=== PATIENT | female | born 2000 | race Caucasian/White ===

== ENCOUNTER 2022-02-16 18:19 | Emergency (ER) | payer SELFPAY ==
[2022-02-16 18:39] VITALS: BP 118/59; PULSE 77; RESP 18; TEMP 36.4; O2SAT 100; BMI 24.4
--- NOTE | 2022-02-16 20:16 | PC.NURSE ---
Pt would like hemorrhoid checked. It has been flaring up for the past week. Reports some scant spotting, but no significant bleeding. Has tried OTC meds without relief.
--- NOTE | 2022-02-16 21:10 | ED.MEDCLEAR ---
HPI - Medical Clearance General Chief complaint: Medical Clearance Stated complaint: Severe hemorrhoid needs checked Time Seen by Provider: 02/16/22 20:55 Source: patient Mode of arrival: Ambulatory History of Present Illness HPI Narrative: Patient is a 21-year-old female who is here for evaluation of a hemorrhoid. She states that she has had it for the past 1-2 weeks. She has a very small amount of bleeding. Has not been constipated. No diarrhea. Has had hemorrhoids in the past but they have all resolved on their own. She states they have never lasted this long or have been this uncomfortable. Has not tried anything for the symptoms prior to arrival. Related Information Previous Rx's Medication Instructions Recorded pramoxine 1 % topical foam 1 applic WI TID PRN hemorrhoids 02/16/22 (Proctofoam) #15 grams Allergies Allergy/AdvReac Type Severity Reaction Status Date / Time No Known Drug Allergies Allergy Verified 02/16/22 18:39 Review of Systems Constitutional Constitutional: Reports system reviewed and no additional complaints, except as documented Gastrointestinal Gastrointestinal: Reports system reviewed and no additional complaints, except as documented Genitourinary Genitourinary: Reports system reviewed and no additional complaints, except as documented Integumentary/Breasts Skin/Breast: Reports system reviewed and no additional complaints, except as documented Hematologic/Lymphatic On Anticoagulants: No Patient History Medical History Hemorrhoids Social History Smoking Status: Never smoker Smoking Status: Never smoker alcohol intake frequency: a few times a week Substance Use Type: does not use Exam Initial Vital Signs Initial Vital Signs: Vital Signs Temperature 97.5 F L 02/16/22 18:39 Pulse Rate 77 02/16/22 18:39 Respiratory Rate 18 02/16/22 18:39 Blood Pressure 118/59 L 02/16/22 18:39 Pulse Oximetry 100 02/16/22 18:39 Oxygen Delivery Method 02/16/22 18:39 Const General: cooperative and comfortable HENMT Head: normal to inspection and normocephalic GI Rectal Exam: hemorrhoids (External) Skin General: no rashes or lesions noted Neuro General: patient alert, patient awake and moves all extremities MDM - Medical Clearance MDM Narrative Medical decision making narrative: Patient with a nonthrombosed external hemorrhoid. No active bleeding. No fissures noted. Had a discussion with her regarding this. No indication for emergent surgical consultation. Was sent home with a prescription for Proctofoam. We did discuss other modalities that she could use such as Sitz baths and preparation H. she was given information that she can contacted General surgery for a follow-up. She was given return precautions. She expressed understanding and agreement. Discharge Plan Departure Patient Disposition: Home Clinical Impression: External hemorrhoids Instructions: DI for Hemorrhoids Activity Restrictions/Additional Instructions: It is important that you maintain soft regular bowel movements. You can continue with topical cream such as preparation H. this can be purchased [id number]. You can contact the general surgery department at the number provided below for a follow-up. A prescription was sent to [facility] in [place]. Prescriptions: New pramoxine [Proctofoam] 1 % foam 1 applic WI TID PRN (Reason: hemorrhoids) Qty: 15 0RF Referrals: Kevyn Calvin MD [Physician] - Visit Report Forms: Patient Portal/API
== END 2022-02-16 21:15 | disposition home or self-care (01) ==
PROVIDERS: Emergency Provider Emergency Medicine
DX: K64.4 Residual hemorrhoidal skin tags (principal)
CPT/HCPCS: 99281

== ENCOUNTER → 2024-08-11 12:49 | Outpatient (CLI) | payer OTHER, SELFPAY ==
--- NOTE | 2024-08-11 12:52 | DI.US.S_ITS ---
PROCEDURE: US OB >= 14 WEEKS FETUS INDICATIONS: 20 Weeks OUTSIDE/PRIOR DATING DATA: Last menstrual period (LMP): March 24, 2024. LMP-based estimated date of delivery (JESSICA): December 30, 2023 First dating scan (date and location): June 03, 2024 Estimated date of delivery (JESSICA) from first dating scan: December 29, 2024 TECHNIQUE: Real-time scanning was performed of the fetus, with image documentation and biometric measurements. Endovaginal scanning: Not performed COMPARISON: None. FINDINGS: General: A single living intrauterine gestation is present. Presentation: Vertex. Placenta: Placental position is anterior, without previa. Normal >2 cm. Low lying is <2 cm to the edge. Previa covers the internal os. Amniotic fluid index: 21.3 cm, normal range is 5-24 cm. Single deepest vertical pocket is 3.5 cm. heart rate: 158 beats per minute. Maternal cervical canal: 3.5 cm long. Normal lower limit is 2.5 cm. biometrics: Biparietal diameter: 5.0 cm, 21 weeks, 1 day Head circumference: 18.0 cm, 20 weeks 3 days Abdominal circumference: 16.4 cm, 21 weeks 3 days Femur length: 3.3 cm, 20 weeks 3 days Clinically estimated gestational age: 20 weeks 0 days Composite gestational age from present scan: 20 weeks 6 days Estimated weight and percentile: 387 g, 91% Anatomic survey: Neuro: Ventricles are non-dilated at less than 10 mm. Cisterna magna is normal at 3-11 mm. Cerebellum is normal in size and morphology. Nuchal skin fold: Normal at less than 6 mm between 14-21 weeks gestational age. Face: Nose and lips, facial profile are normal. Spine: No evidence for spina bifida. Heart: 4-chambered heart is present, with normal ventricular outflow tracts. Diaphragm: Diaphragm is intact. Stomach: Left-sided stomach is present. Kidneys: No hydronephrosis. Normal is less than 5 mm in 2nd trimester, less than 7 mm in 3rd trimester. Cord: 3-vessel cord has orthotopic insertion. Bladder: Normal in size. Extremities: All 4 extremities identified. IMPRESSION: 1. No sonographic anatomic abnormalities. 2. Estimated weight percentile of 91%. Developing macrosomia cannot be excluded. Sonographic follow-up recommended. We strive to produce accurate, complete, and clear reports of imaging services. To assist us in improving patient care, this report was composed using standard report templates and voice recognition software. Therefore, it may contain abnormal punctuation, insertions and/or omissions. Occasional wrong-word or sound-alike substitutions may occur. Though we review the report and make efforts to correct it, we do recommend that the report be read carefully in proper context to recognize any text inaccuracies. Dictated by: Sherri Wayne M.D. on 08/11/2024 at 16:39 Approved by: Sherri Wayne M.D. on 08/11/2024 at 16:42
== END ==
LOC: US 12:51
PROVIDERS: Referring Provider Nurse Practitioner Obstetrics & Gynecology; Visit Provider Nurse Practitioner Obstetrics & Gynecology
DX: Z34.92 Encounter for supervision of normal pregnancy, unspecified, second trimester (principal); Z3A.21 21 weeks gestation of pregnancy
CPT/HCPCS: 76811

== ENCOUNTER 2024-12-30 21:27 | Inpatient (IN) | payer OTHER, SELFPAY ==
[2024-12-30 21:41] VITALS: BP 140/87
--- NOTE | 2024-12-30 22:09 | PM.OBHP.1 ---
OB HPI Date/Time Date of admission: 12/30/24 Date Patient Seen: 12/30/24 Time Patient Seen: 21:50 History of Present Condition Chief complaint: labor : 1 Para: 0 Estimated Date of Delivery: 12/29/24 Estimated Gestational Age (weeks): 40w1d Narrative: Juanis Negron is a 24 year old female at 40w1d by LMP and confirmed by 12 week ultrasound. She has had uncomplicated care with [facility]. Medical history includes history of genital HSV; has been on valacyclovir as prophylaxis since 12/11/24. She is GBS positive and Rubella non-immune. She was treated for BV once during her . Juanis called at 2032 to report SROM with large gush of clear fluid that is continuing to come out. Contractions started almost immediately approx 2 min apart lasting 50 seconds. Baby was moving well earlier; unable to focus on movement since SROM due to intensity of contractions. Zoë arrived to L&D unit with her , South. She is planning an unmedicated , but may consider nitrous oxide to help manage pain. History of Present care: good care, initiated at week # (12), number of visits (9) and pounds weight gain (49) Obstetrical complications: other (GBS positive) Medical complications: genitourinary (Genital HSV) Preadmission Labs Blood type: A (+) positive -: Antibody screen: negative, Cystic fibrosis screen: negative, GBS status: positive, HBsAG: negative, HIV: negative, HSV 1: unknown, HSV 2: negative and RPR/VDLR: negative -: Chlamydia screen: not detected and Gonorrhea screen: not detected -: Rubella: not immune and Varicella: immune HCT: 39.4 HCAB: negative Quad screen: Normal (AFP negative) Cell-free DNA: Negative x 3, XY Urine: negative 1 hr GTT: 74 Prior (ies) History: This is her first Evaluation Evaluation Baseline heart rate: 130 Variability: Moderate (11-25) monitor accelerations: Absent Monitor Decelerations: Absent Contraction Frequency (minutes): 2 Uterine Contraction Intensity: Strong/Firm Status: Category l Dilation (cm): 8.5 Effacement (%): 100 Dilation: >/=5 cm Effacement: >/=80% station: +1 Position of cervix: anterior Consistency: soft Camargo score: 13 Comments: Gross rupture approx 2030, clear fluid. Bedsie ultrasound confirmed cephalic presentation. [facility] Medical History (Updated 12/31/24 @ 01:02 by Kerrie Osborne CNM, MAXIM) Genital HSV Hemorrhoids Family History (Updated 12/31/24 @ 01:03 by Kerrie Osborne CNM, MAXIM) Grandmother Hypertension Cancer Thyroid disease Osteoporosis Uncle Diabetes mellitus Aunt Thyroid disease Father Depression Grandfather Schizophrenia Social History (Updated 12/31/24 @ 01:04 by Kerrie Osborne CNM, MAXIM) do you feel safe at home: Yes Smokeless tobacco user: other second hand exposure: Yes alcohol intake: current substance use type: marijuana Meds Home Medications and Allergies Allergies Allergy/AdvReac Type Severity Reaction Status Date / Time No Known Drug Allergies Allergy Verified 02/16/22 18:39 OB Exam Vital signs Blood Pressure: 140/87 (in labor transition) Pulse Rate: 98 Respiratory Rate: 18 Temperature: 36.4 F Resp Effort & Inspection: normal respiratory effort and able to speak in complete sentences Cardio Rate: regular rate Rhythm: regular rhythm Extremities Lower extremity: Yes normal to inspection GI Inspection: normal to inspection and other (gravid uterus) Objective Labs 12/30/24 22:24 Assessment and Plan Assessment and Plan Assessment and Plan narrative: at 40w1d by LMP GBS positive Rh positive Genital HSV Rubella non-immune FHR Cat 1 Admit to L&D IV start, plan for cephazolin as GBS prophylaxis Labor support Intermittent auscultation Anticipate NSVB. Time-Based Coding :: [TOTAL MINUTES] spent with patient and on the chart (including review of chart, obtaining history, exam, reviewing outside data, placing orders, documenting exam and treatment plan, and counseling patient) on [DATE].
[2024-12-30] MEDS: CEFAZOLIN 2 GM/100 ML PREMIX 100 ML IV (22:31)
[2024-12-30] MEDS: LACTATED RINGERS 1,000 ML 100 ML IV (22:32)
[2024-12-30 22:36] LABS: Add Manual Diff / Slide Review NO; Basophils Absolute Auto 100 /uL (0-100); Basophils Percent Auto 0.5 % (0-2); Eosinophils Absolute Auto 0 /uL (0-450); Eosinophils Percent Auto 0.4 % (2-4); Hematocrit 42.9 % (36-46); Hemoglobin 14.9 g/dL (12.0-16.0); Lymphocytes Absolute Auto 2400 /uL (1100-4500); Lymphocytes Percent Auto 19.8 % (25-40); Mean Corpuscular HGB Conc 34.6 % (30-36); Mean Corpuscular Hemoglobin 30.7 PG (26-34); Mean Corpuscular Volume 88.6 fL (80-100); Monocytes Absolute Auto 1000 /uL (0-900); Monocytes Percent Auto 8.2 % (3-14); Neutrophils Absolute Auto 8600 /uL (1500-7000); Neutrophils Percent Auto 71.1 % (50-75); Platelet Count 254 X10^3/uL (150-400); Red Blood Cell Count 4.85 X10^6/uL (4.0-5.2); Red Cell Distribution Width 13.2 % (11.6-14.8); White Blood Cell Count 12.1 X10^3/uL (4.5-11.0)
[2024-12-30] MEDS: OXYTOCIN PREMIX 30 UNIT/500 ML PLAST..BAG 200 UNIT IV (23:35)
[2024-12-31] MEDS: KETOROLAC 30 MG/ML VIAL IV (00:15)
[2024-12-31] MEDS: LIDOCAINE 1% 20 ML INJ (01:05)
[2024-12-31 01:09] VITALS: BP 140/87; PULSE 98; RESP 18; TEMP 2.4; TEMP 36.4
--- NOTE | 2024-12-31 01:15 | PM.OBPRVD ---
Labor & Delivery Delivery date: 12/30/24 Delivery Time: 23:25 Delivery monitor: external FHT Route of delivery: L&D Laceration Description: Perineal - 2nd Degree Delivery repair: vicryl Estimated blood loss (mL): 417 Quantitative Blood Loss: 417 Anesthesia Type: None Narrative: Labor progressed well after admission. Not long after cervical exam, Zoë felt the spontaneous urge to push at and pushed effectively for a short nulliparous 2nd stage. FHR was Cat 1 or reassuring by doppler throughout 2nd stage. NSVB of baby at 2325 while sitting on the toilet; shoulders delivered easily and there was no nuchal cord. To complete delivery of the body, Zoë was asked to stand up, and then she reached down to meet her son. Zoë was helped to the bed and IV piticon started at 333 ml/hr for AMTSL. Apgars 9/10. They remained skin to skin while cord was cut and placenta was delivered. Placenta delivered spontaneously with maternal efforts and appeared to be intact. 3 vessel cord clamped and cut by South at 14 minutes of life after cord pulsing had slowed. Cord blood collected for blood typing. Perineum inspected and found to have 2nd degree perineal laceration, repaired with 3-0 vicryl in usual fashion. Periclitoral laceration noted but hemostatic and shallow, so not repaired. Blood loss measured and estimated loss is 417 mL. Mom and baby left stable and is being initiated. Zoë & South are thrilled to meet their son, Parveen. Kerrie Osborne LEAN MANUFACTURING SPECIALIST, CNM, IBCLC Baby 1: gender: Male Presentation: vertex Position: Left Occiput Anterior Placenta delivery description: Spontaneous Cord Vessel Description: 3 Vessels score (1 min): 9 score (5 min): 10 weight: 3.941 kg Plan for aftercare: Routine care
[2024-12-31] MEDS: IBUPROFEN 600 MG TABLET PO ×3 (08:39→23:24)
[2024-12-31] MEDS: LANOLIN OINT 7 GM 1 APPLIC TOP (08:40)
[2024-12-31] MEDS: ACETAMINOPHEN 325 MG TABLET 650 MG PO ×3 (08:40→23:25)
[2024-12-31] MEDS: DERMOPLAST SPRAY 20% 60 ML 1 SPRAY TOP (08:41)
[2024-12-31] MEDS: WITCH HAZEL/GLYCERIN PADS 1 EACH TOP (08:42)
--- NOTE | 2024-12-31 23:49 | PM.OBDS.1 ---
Discharge Providers <Kerrie Osborne CNM, ARNP - Last Filed: 01/01/25 00:06> Provider Date of admission: 12/30/24 21:27 Discharge Date: 01/01/25 Consults: 12/30/24 21:41 Consult to Anesthesiology Urgent Comment: Consulting Provider: Anesthesiologist Reason for consultation: Epidural 12/31/24 23:45 Consult to Telegraph Operator Routine Comment: Discharge provider: Kerrie Osborne CNM, ARNP <Shannon Cesar CNM - Last Filed: 01/01/25 09:53> Provider Primary care physician: MAXIM Ivory Summary <Kerrie Osborne CNM, ARNP - Last Filed: 01/01/25 00:06> Hospital Course Date Patient Seen: 01/01/25 Time Patient Seen: 07:00 Diagnoses: O80 Hospital Course: Juanis came in to L&D in active labor, progressed quickly to complete and had precipitous NSVB while sitting on toilet. 2nd degree perineal laceration repaired with 3-0 Vicryl. QBL 417 mL. Normal course. . PPD2: 34 hours s/p NSVB. Voiding, ambulating and independently. Tolerating a general diet. Pain is well controlled with PO medication. Vaginal bleeding is light to moderate with minimal clots. She is feeling ready for discharge to home with her and baby. Peripartum Data Infant Delivery Method: Natural Vaginal Laceration Description: Perineal - 2nd Degree Procedures: , perineal laceration repair. 1: Gender: Male Disposition of : home Discharge Diagnosis (1) (normal spontaneous vaginal delivery): Status: Acute (2) Second degree perineal laceration: Status: Acute (3) Mother currently breast-feeding: Status: Acute (4) Precipitous delivery: Status: Acute (5) Hemorrhoids: Status: Acute Problem Details: Supported during 2nd stage. Recommend sitz baths, witch lakeisha and topical steroids as needed for healing. Status at Discharge Cognitive/behavioral status at discharge: oriented and calm Functional status at discharge: independent ambulation Overall status at discharge: patient is progressing back to baseline Time Spent with Patient Time attestation: Total time spent providing and/or coordinating discharge services: Time spent: Less than 30 minutes Specific discharge activities: discharge teaching <Shannon Cesar CNM - Last Filed: 01/01/25 09:53> Hospital Course Diagnoses: O70.1 Discharge Diagnosis (1) (normal spontaneous vaginal delivery): (2) Second degree perineal laceration: (3) Mother currently breast-feeding: (4) Precipitous delivery: (5) Hemorrhoids: Objective <Kerrie Osborne CNM, ARNP - Last Filed: 01/01/25 00:06> Labs 12/30/24 22:24 Exam <Kerrie Osborne CNM, ARNP - Last Filed: 01/01/25 00:06> Vital Signs (past 8 hours): BP 121/84, RR 16, Temp 97, HR 84 bpm, SpO2 97% Other: Fundus firm at U, midline. Lochia moderate Perineum intact with minimal edema <Shannon Cesar CNM - Last Filed: 01/01/25 09:53> Vital Signs (past 8 hours): BP 115/73, RR 16, Temp 98.0F Temporal, HR 88 bpm, SpO2 99% on RA Other: Fundus firm at U, midline. Lochia moderate Perineum well approximated with minimal edema Discharge Plan Discharge Plan Patient Disposition: Home Discharge orders & Medications Prescriptions: New ibuprofen 600 mg Tablet 600 mg PO Q6HR PRN (Reason: Pain, Mild (1-3)) 14 Days Qty: 60 0RF Follow up/Referrals: Kerrie Osborne CNM, ARNP [Advanced Administrative Services Manager] - 2 Weeks (2 week and 6 week appointments as scheduled; see in e-mail.) Activity Restrictions/Additional Instructions: Low fuentes for 2 weeks. Diet/Activity/Treatments Diet: Diet as Tolerated, Regular and Feed on demand Diet comment: Increase fiber and fluid to promote healing Activity: bed rest x 2 weeks, no heavy lifting x 4 weeks, pelvic rest x 6 weeks Cold/Heat Therapy: as needed for comfort/pain Skin/Wound/Dressing Care Skin care: usual care Report to your healthcare provider any signs of infection, such as:: chills, fever, unusual drainage and unusual redness Other wound treatment: sitz baths to heal perineum Visit Report/Discharge Packet Instructions: DI for Depression Stand Alone Forms: Patient Portal/API, Stroke Signs & Symptoms
[2025-01-01] MEDS: IBUPROFEN 600 MG TABLET PO (08:11)
[2025-01-01] MEDS: ACETAMINOPHEN 325 MG TABLET 650 MG PO (08:11)
== END 2025-01-01 11:05 | disposition home or self-care (01) | DRG 806 ==
PROVIDERS: Admitting Provider Advanced Practice Midwife; Referring Provider Advanced Practice Midwife; Visit Provider Advanced Practice Midwife
DX: O99.824 Streptococcus B carrier state complicating childbirth (principal); O98.32 Other infections with a predominantly sexual mode of transmission complicating childbirth; Z37.0 Single live birth; A60.00 Herpesviral infection of urogenital system, unspecified; Z3A.40 40 weeks gestation of pregnancy; O70.1 Second degree perineal laceration during delivery
CPT/HCPCS: 36415; 59050; 76815; 85025; 86850; 86900; 86901; G0379; J0690; J1885; J2590